=== PATIENT | male | born 1975 | race Caucasian/White ===

== ENCOUNTER 2017-08-01 16:59 | Emergency (ER) | payer MEDICARE, OTHER ==
[~2017-08-01] VITALS: Ht 182.9 cm; Wt 122.5 kg
[2017-08-01] MEDS ORDERED: PHENOBARBITAL100 MG PO (17:18)
[2017-08-01] MEDS ORDERED: TOPROL XL100 MG PO (17:18)
[2017-08-01] MEDS ORDERED: ALPRAZOLAM1 MG PO (17:19)
[2017-08-01] MEDS ORDERED: HYDROCHLOROTHIA25 MG PO (17:19)
[2017-08-01] MEDS ORDERED: OXYCODONE HCL10 MG PO (17:20)
[2017-08-01] MEDS ORDERED: CYCLOBENZAPRINE5 MG PO (18:31)
[2017-08-01] MEDS ORDERED: IBUPROFEN600 MG PO (18:31)
--- NOTE | 2017-08-01 19:27 | EKG ---
[facility] [address] [facility] [place] [address] Signed Normal sinus rhythm Nonspecific ST and T wave abnormality Abnormal ECG No previous ECGs available Confirmed by RUDI HAYES MD ([id number]) on 08/01/2017 7:26:48 PM Electronically Signed By: RUDI HAYES MD 08/01/17 1927 PATIENT NAME: ANN SHOOKSEEMA BERNARDO Electrocardiogram DATE OF : 79 PHYSICIAN: RUDI HAYES MD REPORT #: [id number] REPORT IS CONFIDENTIAL AND NOT TO BE RELEASED WITHOUT AUTHORIZATION
== END 2017-08-01 18:57 | disposition home or self-care (01) ==
LOC: ED 16:59
DX: R07.89 Other chest pain (principal); I10 Essential (primary) hypertension; G40.909 Epilepsy, unspecified, not intractable, without status epilepticus; Z79.899 Other long term (current) drug therapy
CPT/HCPCS: 71045; 80053; 84484; 85025; 85610; 93005; 93010; 99284

== ENCOUNTER 2020-10-01 13:27 | Emergency (ER) | payer MEDICARE, OTHER ==
[~2020-10-01] VITALS: Ht 182.9 cm; Wt 106.6 kg
[~2020-10-01 13:27] MED LIST: ALPRAZOLAM1 MG PO; CYCLOBENZAPRINE5 MG PO; HYDROCHLOROTHIA25 MG PO; IBUPROFEN600 MG PO; OXYCODONE HCL10 MG PO; PHENOBARBITAL100 MG PO; TOPROL XL100 MG PO
--- OUTSIDE RECORDS SUMMARY | 2020-10-01 13:30 | XMS ---
PreManage Notification: SEEMA JUAREZ [facility] Manager Events No recent Security Events currently on file CRITERIA MET - [facility] CARE PROVIDERS There are no care providers on record at this time. Jimena has no Care Guidelines for this patient. Sam VISIT COUNT (12 MO.) 1 RAMBO Donnelly TOTAL 1 NOTE: Visits indicate total known visits. ED/C VISIT TRACKING (12 MO.) 10/01/2020 13:28 RAMBO [facility] OR TYPE: Emergency COMPLAINT: - BACK PAIN INPATIENT VISIT TRACKING (12 MO.) No inpatient visits to display in this time frame [email or web address]
[2020-10-01] MEDS ORDERED: PREDNISONE20 MG PO (15:23)
[2020-10-01] MEDS ORDERED: CYCLOBENZAPRINE10 MG PO (15:24)
== END 2020-10-01 15:34 | disposition home or self-care (01) ==
LOC: ED 13:27
DX: M54.5 Low back pain (principal); R10.31 Right lower quadrant pain; I10 Essential (primary) hypertension; F17.200 Nicotine dependence, unspecified, uncomplicated; Z79.899 Other long term (current) drug therapy
CPT/HCPCS: 74176; 80053; 81001; 83690; 85025; 96374; 96375; 99284-25; J2270; J2405; J7030

== ENCOUNTER 2022-01-13 00:03 | Emergency (ER) | payer MEDICARE, MEDICAID ==
[~2022-01-13] VITALS: Ht 182.9 cm; Wt 100.2 kg
[~2022-01-13 00:03] MED LIST changes: +CYCLOBENZAPRINE10 MG PO; +PREDNISONE20 MG PO
--- OUTSIDE RECORDS SUMMARY | 2022-01-13 00:07 | XMS ---
PreManage Notification: SEEMA JUAREZ [employer] Manager Events No recent Security Events currently on file CRITERIA MET - PDMP CARE PROVIDERS GAGE LIC[facility] 10/04/2020-Current PHONE: Unknown Jimena has no Care Guidelines for this patient. Sam VISIT COUNT (12 MO.) 2 RAMBO Donnelly TOTAL 2 NOTE: Visits indicate total known visits. ED/UCC VISIT TRACKING (12 MO.) 01/13/2022 00:05 RAMBO [facility] OR TYPE: Emergency COMPLAINT: - ABD PAIN 12/02/2021 13:28 RAMBO Ar[facility] OR TYPE: Emergency COMPLAINT: - COLD SYMPTOMS INPATIENT VISIT TRACKING (12 MO.) No inpatient visits to display in this time frame [email or web address]
[2022-01-13] MEDS ORDERED: VENTOLIN HFA18 GM INH (00:27)
[2022-01-13] MEDS ORDERED: PHENYTOIN SODI100 MG PO (00:27)
[2022-01-13] MEDS ORDERED: ONDANSETRON ODT8 MG PO (03:18)
[2022-01-13] MEDS ORDERED: PERCOCET 5-3251 EACH PO (03:18)
[2022-01-13] MEDS ORDERED: K-TAB ER20 MEQ PO ×2 (03:50→03:51)
== END 2022-01-13 03:40 | disposition home or self-care (01) ==
LOC: ED 00:03
DX: K80.50 Calculus of bile duct without cholangitis or cholecystitis without obstruction (principal); I10 Essential (primary) hypertension; F17.200 Nicotine dependence, unspecified, uncomplicated; Z79.899 Other long term (current) drug therapy
CPT/HCPCS: 36415; 74177; 80053; 81001; 83690; 85025; 96375; 96376; 99284-25; A9270; J1170; J2405; J7030; Q9967